=== PATIENT | male | born 1945 | race Caucasian/White ===

== ENCOUNTER → 2016-11-07 | Outpatient (CLI) | payer MEDICARE, OTHER ==
[~2016-11-07] MED LIST: CELEBREX50 MG; NEXIUM 40MG40 MG PO; PERCOCET 325 MG1 TA2 PO; VALIUM 5MG T5 MG/TAB PO; ZOCOR20 MG PO; ZYRTEC 10MG10 MG PO
== END ==
LOC: COL.RAD 10:13
DX: Z13.6 Encounter for screening for cardiovascular disorders (principal); I71.4 Abdominal aortic aneurysm, without rupture; Z87.891 Personal history of nicotine dependence

== ENCOUNTER → 2016-11-25 | Outpatient (CLI) | payer MEDICARE, OTHER | LOC: COL.RAD 10:56 | DX: M47.816 Spondylosis without myelopathy or radiculopathy, lumbar region (principal); M46.87 Other specified inflammatory spondylopathies, lumbosacral region; M89.38 Hypertrophy of bone, other site; M51.36 Other intervertebral disc degeneration, lumbar region ==

== ENCOUNTER → 2016-12-23 | Outpatient (CLI) | payer MEDICARE, OTHER | LOC: MHCPAIN 08:57 | DX: G89.29 Other chronic pain (principal); M47.817 Spondylosis without myelopathy or radiculopathy, lumbosacral region; M53.3 Sacrococcygeal disorders, not elsewhere classified; Z87.891 Personal history of nicotine dependence | CPT/HCPCS: G0463 ==

== ENCOUNTER → 2016-12-26 | Outpatient (CLI) | payer MEDICARE, OTHER | LOC: COL.RAD 12:31 | DX: R91.8 Other nonspecific abnormal finding of lung field (principal); J43.9 Emphysema, unspecified ==

== ENCOUNTER → 2017-01-09 | Outpatient (CLI) | payer MEDICARE, OTHER | LOC: MHCPAIN 09:10 | DX: M47.817 Spondylosis without myelopathy or radiculopathy, lumbosacral region (principal) ==

== ENCOUNTER → 2017-01-17 | Outpatient (CLI) | payer MEDICARE, OTHER | LOC: MHCPAIN 09:36 | DX: G89.29 Other chronic pain (principal); M47.817 Spondylosis without myelopathy or radiculopathy, lumbosacral region; M53.3 Sacrococcygeal disorders, not elsewhere classified; Z87.891 Personal history of nicotine dependence | CPT/HCPCS: G0463 ==

== ENCOUNTER → 2017-01-20 | Outpatient (CLI) | payer MEDICARE, OTHER | LOC: COL.RAD 07:45 | DX: K76.0 Fatty (change of) liver, not elsewhere classified (principal) ==

== ENCOUNTER → 2017-02-20 | Outpatient (CLI) | payer MEDICARE, OTHER | LOC: MHCPAIN 08:37 | DX: M47.817 Spondylosis without myelopathy or radiculopathy, lumbosacral region (principal) ==

== ENCOUNTER → 2017-02-28 | Outpatient (CLI) | payer MEDICARE, OTHER | LOC: MHCPAIN 09:27 | DX: G89.29 Other chronic pain (principal); M47.817 Spondylosis without myelopathy or radiculopathy, lumbosacral region; M53.3 Sacrococcygeal disorders, not elsewhere classified; Z87.891 Personal history of nicotine dependence | CPT/HCPCS: G0463 ==

== ENCOUNTER → 2017-03-18 | Outpatient (CLI) | payer MEDICARE, OTHER | LOC: COL.PUL 09:45 | DX: R06.02 Shortness of breath (principal); Z87.891 Personal history of nicotine dependence | CPT/HCPCS: J7674 ==

== ENCOUNTER → 2017-03-27 | Outpatient (CLI) | payer MEDICARE, OTHER ==
[~2017-03-27] MED LIST changes: +NORCO 325 MG-51 TAB PO; +PROTONIX 40MG T40 MG PO
== END ==
LOC: MHCPAIN 08:58
DX: M47.817 Spondylosis without myelopathy or radiculopathy, lumbosacral region (principal)
CPT/HCPCS: J1100; J2405; J3010

== ENCOUNTER 2017-03-30 02:03 | Emergency (ER) | payer MEDICARE, OTHER ==
[~2017-03-30] VITALS: Ht 185.4 cm; Wt 101.4 kg
[~2017-03-30 02:03] MED LIST changes: -NORCO 325 MG-51 TAB PO; -PROTONIX 40MG T40 MG PO
[2017-03-30 02:07] VITALS: BP 141/77; TEMP 97.9
[2017-03-30] MEDS ORDERED: PROTONIX 40MG T40 MG PO (02:12)
[2017-03-30] MEDS ORDERED: NORCO 325 MG-51 TAB PO (02:13)
[2017-03-30 04:09] VITALS: PULSE 88
== END 2017-03-30 04:09 | disposition home or self-care (01) ==
LOC: COL.ER 02:03
DX: G89.18 Other acute postprocedural pain (principal); M25.571 Pain in right ankle and joints of right foot; E78.00 Pure hypercholesterolemia, unspecified; X50.0XXA Overexertion from strenuous movement or load, initial encounter; Y92.009 Unspecified place in unspecified non-institutional (private) residence as the place of occurrence of the external cause

== ENCOUNTER → 2017-04-09 | Outpatient (CLI) | payer MEDICARE, OTHER ==
[~2017-04-09] MED LIST changes: +NORCO 325 MG-51 TAB PO; +PROTONIX 40MG T40 MG PO
== END ==
LOC: COL.RAD 08:23
DX: K21.9 Gastro-esophageal reflux disease without esophagitis (principal); K44.9 Diaphragmatic hernia without obstruction or gangrene

== ENCOUNTER → 2017-04-23 | Outpatient (CLI) | payer MEDICARE, OTHER | LOC: MHCPAIN 08:11 | DX: G89.29 Other chronic pain (principal); M47.817 Spondylosis without myelopathy or radiculopathy, lumbosacral region; M53.3 Sacrococcygeal disorders, not elsewhere classified; Z87.891 Personal history of nicotine dependence | CPT/HCPCS: G0463 ==

== ENCOUNTER → 2017-06-11 | Outpatient (CLI) | payer MEDICARE, OTHER | LOC: COL.VAS 13:26 | DX: R60.0 Localized edema (principal) ==

== ENCOUNTER 2017-06-15 22:35 | Emergency (ER) | payer MEDICARE, OTHER ==
[~2017-06-15] VITALS: Ht 185.4 cm; Wt 100.0 kg
[2017-06-15 22:52] VITALS: TEMP 96.9
[2017-06-15] MEDS ORDERED: PROAIR HFA0.09 MG/AC IH (22:58)
[2017-06-15] MEDS ORDERED: FLEXERIL 1010 MG/TAB PO (23:42)
[2017-06-15] MEDS ORDERED: NORCO 325 MG-51 TAB PO (23:42)
[2017-06-15 23:57] VITALS: BP 139/89; PULSE 62
== END 2017-06-15 23:55 | disposition home or self-care (01) ==
LOC: COL.ER 22:35
DX: M54.16 Radiculopathy, lumbar region (principal)
CPT/HCPCS: J2270; J2360

== ENCOUNTER 2017-08-18 13:53 | Emergency (ER) | payer MEDICARE, OTHER ==
[~2017-08-18] VITALS: Ht 185.4 cm; Wt 104.5 kg
[~2017-08-18 13:53] MED LIST changes: +FLEXERIL 1010 MG/TAB PO; +PROAIR HFA0.09 MG/AC IH
[2017-08-18 13:54] VITALS: TEMP 96.8
[2017-08-18 14:27] LABS: BASO % 0.4 % (0.0-2.0); EOS # 0.2 (0.0-0.7); EOS % 2.3 % (0-4.0); GRAN # 4.6 (1.4-6.5); GRAN % 65.8 % (42.2-75.2); HEMOGLOBIN 14.5 g/dl (13.5-18.0); LYMPH # 1.4 (1.2-3.4); LYMPH % 19.8 % (20.0-51.0); MEAN CELL VOLUME 87 fl (80.0-100.0); MEAN CORPUSCULAR HEMOGLOBIN 29 pg (27.0-31.0); MEAN CORPUSCULAR HGB CONC 33 g/dl (33.0-37.0); MEAN PLATELET VOLUME 9.4 fl (7.4-10.4); MONO # 0.8 (0.1-0.6); PLATELET COUNT 276 K/mm3 (130-400); RED BLOOD COUNT 5.07 M/mm3 (4.20-5.60); REDCELL DISTRIBUTION WIDTH-CV 14.5 % (11.5-14.5)
[2017-08-18 14:46] LABS: ALANINE AMINOTRANSFERASE 77 U/L (21-72); ALBUMIN 4.1 gm/dL (3.5-5.0); ALKALINE PHOSPHATASE 78 U/L (50-136); ANION GAP 9 mmol/L (7-16); AST,SGOT 77 U/L (15-37); BILIRUBIN,TOTAL 0.4 mg/dL (0.0-1.0); BLOOD UREA NITROGEN 17 mg/dL (9-20); CARBON DIOXIDE 24 mmol/L (22-30); CHLORIDE 107 mmol/L (98-107); CREATININE, serum 0.96 mg/dL (0.66-1.25); GLUCOSE 69 mg/dL (74-106); POTASSIUM 3.7 mmol/L (3.4-5.0); SODIUM 140 mmol/L (137-145); TOTAL PROTEIN 7.5 gm/dL (6.4-8.2)
[2017-08-18 14:47] LABS: C-REACTIVE PROTEIN < 0.5 mg/dL (0.0-0.9)
[2017-08-18 14:55] LABS: TROPONIN-I < 0.012 ng/mL (0.000-0.034)
[2017-08-18 16:30] LABS: COLLECTION METHOD CLEAN CATCH
[2017-08-18 16:40] LABS: MUCOUS Present /lpf; PH 5 (5-8); SQUAMOUS EPITHELIAL None Seen /hpf; URINE APPEARANCE Clear; URINE BACTERIA Rare /hpf; URINE BILIRUBIN Negative (NEGATIVE); URINE BLOOD Negative (NEGATIVE); URINE COLOR Yellow; URINE GLUCOSE 1+ (NEGATIVE); URINE KETONE Negative (NEGATIVE); URINE LEUKOCYTE ESTERASE Negative (NEGATIVE); URINE NITRATE Negative (NEGATIVE); URINE PROTEIN(semi-quant) Negative (NEGATIVE); URINE RBC 0-2 /hpf; URINE UROBILINOGEN Negative (NEGATIVE)
[2017-08-18 17:17] VITALS: BP 146/89; PULSE 66
== END 2017-08-18 17:17 | disposition home or self-care (01) ==
LOC: COL.ER 13:53
PROVIDERS: Physician Assistant
DX: R53.81 Other malaise (principal); K21.9 Gastro-esophageal reflux disease without esophagitis; E78.5 Hyperlipidemia, unspecified; Z98.890 Other specified postprocedural states
CPT/HCPCS: J2405; J7030

== ENCOUNTER → 2017-08-19 | Outpatient (CLI) | payer MEDICARE, OTHER | LOC: MHCPAIN 08:54 | DX: G89.29 Other chronic pain (principal); M47.817 Spondylosis without myelopathy or radiculopathy, lumbosacral region; M53.3 Sacrococcygeal disorders, not elsewhere classified | CPT/HCPCS: G0463 ==

== ENCOUNTER → 2017-09-01 | Outpatient (CLI) | payer MEDICARE, OTHER | LOC: COL.RAD 12:41 | DX: M47.892 Other spondylosis, cervical region (principal); M48.02 Spinal stenosis, cervical region ==

== ENCOUNTER → 2017-09-15 | Outpatient (CLI) | payer MEDICARE, OTHER | LOC: MHCPAIN 08:47 | DX: G89.29 Other chronic pain (principal); M47.817 Spondylosis without myelopathy or radiculopathy, lumbosacral region; M53.3 Sacrococcygeal disorders, not elsewhere classified | CPT/HCPCS: G0463 ==

== ENCOUNTER → 2017-09-22 | Outpatient (CLI) | payer MEDICARE, OTHER | LOC: MHCPAIN 12:25 | DX: M53.3 Sacrococcygeal disorders, not elsewhere classified (principal) | CPT/HCPCS: G0260; J1040; Q9967 ==

== ENCOUNTER → 2017-10-14 | Outpatient (CLI) | payer MEDICARE, OTHER | LOC: MHCPAIN 12:29 | DX: G89.29 Other chronic pain (principal); M47.817 Spondylosis without myelopathy or radiculopathy, lumbosacral region; M53.3 Sacrococcygeal disorders, not elsewhere classified | CPT/HCPCS: G0463 ==

== ENCOUNTER → 2017-10-28 | Outpatient (CLI) | payer MEDICARE, OTHER | LOC: MHCPAIN 09:19 | DX: G89.29 Other chronic pain (principal); M47.817 Spondylosis without myelopathy or radiculopathy, lumbosacral region; M53.3 Sacrococcygeal disorders, not elsewhere classified | CPT/HCPCS: G0463 ==

== ENCOUNTER → 2017-10-30 | Outpatient (CLI) | payer MEDICARE, OTHER | LOC: MHCPAIN 13:56 | DX: M47.817 Spondylosis without myelopathy or radiculopathy, lumbosacral region (principal); M54.16 Radiculopathy, lumbar region | CPT/HCPCS: J1100; J2250; J2405; J3010 ==

== ENCOUNTER → 2017-11-21 | Outpatient (CLI) | payer MEDICARE, OTHER | LOC: COL.VAS 08:50 | DX: M79.605 Pain in left leg (principal); M79.604 Pain in right leg ==

== ENCOUNTER → 2017-12-30 | Outpatient (CLI) | payer MEDICARE, OTHER | LOC: MHCPAIN 12:23 | DX: G89.29 Other chronic pain (principal); M47.817 Spondylosis without myelopathy or radiculopathy, lumbosacral region; M53.3 Sacrococcygeal disorders, not elsewhere classified | CPT/HCPCS: G0463 ==

== ENCOUNTER → 2018-01-08 | Outpatient (CLI) | payer MEDICARE, OTHER | LOC: MHCPAIN 13:19 | DX: M53.3 Sacrococcygeal disorders, not elsewhere classified (principal) | CPT/HCPCS: G0260; J1040; Q9967 ==

== ENCOUNTER → 2018-02-24 | Outpatient (CLI) | payer MEDICARE, OTHER | LOC: COL.RAD 11:06 | DX: J43.9 Emphysema, unspecified (principal); R06.6 Hiccough; R91.8 Other nonspecific abnormal finding of lung field | CPT/HCPCS: Q9967 ==

== ENCOUNTER → 2018-02-27 | Outpatient (CLI) | payer MEDICARE, OTHER | LOC: COL.PUL 09:49 | DX: R06.02 Shortness of breath (principal); Z87.891 Personal history of nicotine dependence | CPT/HCPCS: J7674 ==

== ENCOUNTER 2018-03-03 08:50 | Day surgery (SDC) | payer MEDICARE, OTHER ==
[~2018-03-03] VITALS: Ht 185.4 cm; Wt 104.3 kg
[2018-03-03 09:23] VITALS: BP 136/86; PULSE 78; TEMP 98.1
[2018-03-03] MEDS ORDERED: PROVENTIL0.09 MG/A1 IH (09:30)
[2018-03-03] MEDS ORDERED: CENTRUM SILVER1 TAB PO (09:32)
[2018-03-03] MEDS ORDERED: RT SPIRIVA18 MCG INH (09:33)
--- NOTE | 2018-03-03 09:34 | NUR ---
TO RM AT 0855- CALL LIGHT IN REACH AND FRIENDS AT BEDSIDE.
[2018-03-03 10:48] VITALS: BP 116/78; PULSE 70; TEMP 97.6
--- NOTE | 2018-03-03 10:48 | NUR ---
Patient arrives to [facility] via cart, accompanied by Endo RN Tricia. Bedside report received. Patient is alert and oriented. He ambulates with standby assist to chair in room. Monitoring applied - VSS and WNL on room air. Gag reflex is intact. Denies any pain or nausea. Offered and receives juice and jello to eat. Family at the bedside. Call light in reach. Will continue to monitor.
[2018-03-03 11:03] VITALS: BP 135/86; PULSE 69
--- NOTE | 2018-03-03 11:03 | NUR ---
Patient tolerated PO well. Denies any pain, nausea, or need. VSS and WNL on room air.
[2018-03-03 11:18] VITALS: BP 132/79; PULSE 63
--- NOTE | 2018-03-03 11:18 | NUR ---
VSS and WNL on room air. Denies any pain or nausea.
--- NOTE | 2018-03-03 11:20 | NUR ---
Discharge instructions discussed, denies any questions, and verbalizes understanding. PIV removed with catheter intact and hemostasis achieved. Patient changing to clothing independently. Will wait for Dr. Castelan to see patient prior to discharge.
--- NOTE | 2018-03-03 11:29 | NUR ---
Dr. Castelan at the bedside.
--- NOTE | 2018-03-03 11:35 | NUR ---
Dr. Castelan prescribing Baclofen for patient to supervisor hand silvering at preferred pharmacy ([facility]). Patient notified and aware.
--- NOTE | 2018-03-03 11:40 | NUR ---
Patient escorted to exit via wheelchair. Discharged to home with ride in private vehicle at 1140.
== END 2018-03-03 11:40 | disposition home or self-care (01) ==
LOC: SDCO 08:50
DX: K29.30 Chronic superficial gastritis without bleeding (principal); Z87.19 Personal history of other diseases of the digestive system; Z98.890 Other specified postprocedural states; Z79.899 Other long term (current) drug therapy; E78.00 Pure hypercholesterolemia, unspecified
CPT/HCPCS: OP; J2250; J3010; J7030

== ENCOUNTER → 2018-04-21 | Outpatient (CLI) | payer MEDICARE, OTHER ==
[~2018-04-21] MED LIST changes: +CENTRUM SILVER1 TAB PO; +PROVENTIL0.09 MG/A1 IH; +RT SPIRIVA18 MCG INH
== END ==
LOC: MHCPAIN 07:44
DX: G89.29 Other chronic pain (principal); M47.817 Spondylosis without myelopathy or radiculopathy, lumbosacral region; M53.3 Sacrococcygeal disorders, not elsewhere classified
CPT/HCPCS: G0463

== ENCOUNTER 2018-05-29 13:46 | Emergency (ER) | payer MEDICARE, OTHER ==
[~2018-05-29] VITALS: Ht 185.4 cm; Wt 100.0 kg
[2018-05-29 13:56] VITALS: BP 122/77; PULSE 80; TEMP 99.5
[2018-05-29] MEDS ORDERED: NORCO 325 MG-51 TAB PO (17:22)
[2018-05-29] MEDS ORDERED: FLEXERIL 1010 MG/TAB PO (17:22)
[2018-05-29] MEDS ORDERED: LIDODERM 5% PATC1 EA TP (17:22)
== END 2018-05-29 17:56 | disposition home or self-care (01) ==
LOC: COL.ER 13:46
DX: M54.5 Low back pain (principal); G89.29 Other chronic pain

== ENCOUNTER → 2018-06-05 | Outpatient (CLI) | payer MEDICARE, OTHER ==
[~2018-06-05] MED LIST changes: +LIDODERM 5% PATC1 EA TP
== END ==
LOC: COL.VAS 12:57
DX: R06.02 Shortness of breath (principal)

== ENCOUNTER 2018-06-24 12:45 | Emergency (ER) | payer MEDICARE, OTHER ==
[~2018-06-24] VITALS: Ht 185.4 cm; Wt 97.7 kg
[2018-06-24 12:53] VITALS: TEMP 97
[2018-06-24] MEDS ORDERED: PROTONIX 40MG T40 MG PO (13:05)
[2018-06-24] MEDS ORDERED: LASIX 40MG TABL40 MG PO (13:05)
[2018-06-24] MEDS ORDERED: SPIRIVA RE2.5 MCG/Ac IH (13:06)
[2018-06-24] MEDS ORDERED: FLOMAX 0.40.4 MG/CAP PO (13:06)
[2018-06-24] MEDS ORDERED: ZOCOR 20MG20 MG PO (13:06)
[2018-06-24 13:22] LABS: BASO % 0.4 % (0.0-2.0); EOS # 0.1 (0.0-0.7); EOS % 0.9 % (0-4.0); GRAN # 8.5 (1.4-6.5); GRAN % 84.1 % (42.2-75.2); HEMATOCRIT 47.3 % (42.0-52.0); HEMOGLOBIN 15.8 g/dl (13.5-18.0); LYMPH # 0.7 (1.2-3.4); LYMPH % 6.9 % (20.0-51.0); MEAN CELL VOLUME 87 fl (80.0-100.0); MEAN CORPUSCULAR HEMOGLOBIN 29 pg (27.0-31.0); MEAN CORPUSCULAR HGB CONC 33 g/dl (33.0-37.0); MEAN PLATELET VOLUME 9.9 fl (7.4-10.4); MONO # 0.7 (0.1-0.6); MONO % 7.2 % (1.7-9.3); PLATELET COUNT 313 K/mm3 (130-400); RED BLOOD COUNT 5.41 M/mm3 (4.20-5.60)
[2018-06-24 13:23] LABS: INR 1.1 (0.8-3.0); PROTHROMBIN TIME 12.6 SECONDS (9.7-12.8)
[2018-06-24 13:25] LABS: PARTIAL THROMBOPLASTIN TIME 32.5 SECONDS (26.0-37.0)
[2018-06-24 13:27] LABS: ALANINE AMINOTRANSFERASE 28 U/L (21-72); ALBUMIN 4.2 gm/dL (3.5-5.0); ALKALINE PHOSPHATASE 87 U/L (50-136); ANION GAP 14 mmol/L (7-16); AST,SGOT 36 U/L (15-37); BILIRUBIN,TOTAL 0.6 mg/dL (0.0-1.0); BLOOD UREA NITROGEN 33 mg/dL (9-20); CALCIUM 9.4 mg/dL (8.4-10.2); CARBON DIOXIDE 19 mmol/L (22-30); CHLORIDE 108 mmol/L (98-107); CREATININE, serum 1.54 (0.66-1.25); GLUCOSE 163 mg/dL (74-106); POTASSIUM 3.9 mmol/L (3.4-5.0); SODIUM 142 mmol/L (137-145)
[2018-06-24 13:39] LABS: TROPONIN-I < 0.012 ng/mL (0.000-0.035)
[2018-06-24] MEDS ORDERED: ANTIVERT 25MG25 MG PO (17:52)
[2018-06-24 18:06] VITALS: BP 148/93; PULSE 85
== END 2018-06-24 18:09 | disposition home or self-care (01) ==
LOC: COL.ER 12:45
PROVIDERS: Family Medicine
DX: I95.9 Hypotension, unspecified (principal); J44.9 Chronic obstructive pulmonary disease, unspecified
CPT/HCPCS: J7030

== ENCOUNTER 2018-07-11 15:55 | Emergency (ER) | payer MEDICARE, OTHER ==
[~2018-07-11] VITALS: Ht 182.9 cm; Wt 95.5 kg
[~2018-07-11 15:55] MED LIST changes: +ANTIVERT 25MG25 MG PO; +FLOMAX 0.40.4 MG/CAP PO; +LASIX 40MG TABL40 MG PO; +SPIRIVA RE2.5 MCG/Ac IH; +ZOCOR 20MG20 MG PO
[2018-07-11 15:56] VITALS: TEMP 98.2
[2018-07-11 16:26] LABS: BASO % 0.4 % (0.0-2.0); EOS # 0.2 (0.0-0.7); EOS % 2.1 % (0-4.0); GRAN # 6.6 (1.4-6.5); GRAN % 71.6 % (42.2-75.2); HEMATOCRIT 45.8 % (42.0-52.0); HEMOGLOBIN 15.2 g/dl (13.5-18.0); LYMPH # 1.3 (1.2-3.4); LYMPH % 14.1 % (20.0-51.0); MEAN CELL VOLUME 88 fl (80.0-100.0); MEAN CORPUSCULAR HEMOGLOBIN 29 pg (27.0-31.0); MEAN CORPUSCULAR HGB CONC 33 g/dl (33.0-37.0); MEAN PLATELET VOLUME 9.9 fl (7.4-10.4); MONO % 11.1 % (1.7-9.3); PLATELET COUNT 292 K/mm3 (130-400); RED BLOOD COUNT 5.23 M/mm3 (4.20-5.60); REDCELL DISTRIBUTION WIDTH-CV 13.8 % (11.5-14.5)
[2018-07-11 16:39] LABS: BILIRUBIN,TOTAL 0.4 mg/dL (0.0-1.0); CALCIUM 8.8 mg/dL (8.4-10.2); CREATININE, serum 1.24 (0.66-1.25); POTASSIUM 3.6 mmol/L (3.4-5.0); TOTAL PROTEIN 7.6 gm/dL (6.4-8.2)
[2018-07-11] MEDS ORDERED: FLEXERIL 1010 MG/TAB PO (17:06)
[2018-07-11] MEDS ORDERED: NORCO 325 MG-51 TAB PO (17:06)
[2018-07-11 17:24] VITALS: BP 138/82; PULSE 75
== END 2018-07-11 17:25 | disposition home or self-care (01) ==
LOC: COL.ER 15:55
PROVIDERS: Family Medicine
DX: S39.012A Strain of muscle, fascia and tendon of lower back, initial encounter (principal); J44.9 Chronic obstructive pulmonary disease, unspecified
CPT/HCPCS: J3010

== ENCOUNTER → 2018-08-04 | Outpatient (CLI) | payer MEDICARE, OTHER | LOC: MHCPAIN 08:58 | DX: G89.29 Other chronic pain (principal); M47.817 Spondylosis without myelopathy or radiculopathy, lumbosacral region; M53.3 Sacrococcygeal disorders, not elsewhere classified | CPT/HCPCS: G0463 ==

== ENCOUNTER → 2018-09-07 | Outpatient (CLI) | payer MEDICARE, OTHER | LOC: MHCPAIN 09:31 | DX: G89.29 Other chronic pain (principal); M47.817 Spondylosis without myelopathy or radiculopathy, lumbosacral region; M53.3 Sacrococcygeal disorders, not elsewhere classified | CPT/HCPCS: G0463 ==

== ENCOUNTER 2018-10-08 15:32 | Inpatient (IN) | payer MEDICARE, OTHER ==
[~2018-10-08] VITALS: Ht 185.4 cm; Wt 99.3 kg
[~2018-10-08 15:32] MED LIST changes: +PROTONIX20 MG PO
[2018-10-13] MEDS ORDERED: REMERON 15M15 MG/TA1 PO (03:11)
[2018-10-13] MEDS ORDERED: LIORESAL 1010 MG/TAB PO (03:15)
[2018-10-13] MEDS ORDERED: VITAMIN D31000 I1 PO (03:18)
[2018-10-13] MEDS ORDERED: TYLENOL 500MG500 MG PO (03:21)
[2018-10-13] MEDS ORDERED: MOTRIN 200200 MG/TAB PO (03:22)
[2018-10-13] MEDS ORDERED: PROAIR HFA0.09 MG/AC IH (03:23)
[2018-10-13] MEDS ORDERED: ANORO IH (03:24)
[2018-10-14] MEDS ORDERED: AMOXICILLIN 8751 TAB PO (09:58)
[2018-10-14] MEDS ORDERED: PERCOCET 325 MG1 TA2 PO (09:58)
[2018-10-19] MEDS ORDERED: FLOMAX 0.40.4 MG/CAP PO (12:43)
[2018-12-07] MEDS ORDERED: NORCO 325 MG-51 TAB PO (22:17)
[2018-12-07] MEDS ORDERED: FLEXERIL 1010 MG/TAB PO (22:17)
[2019-01-13] VITALS (11 sets, daily range): BP systolic 108–153; BP diastolic 65–87; PULSE 72–84; TEMP 97.9–98.2
--- NOTE | 2019-01-13 10:32 | NUR ---
Initial visit; Patient and family thanked Aircraft Assembler for looking in on him and offering God's blessings and prayer.
--- NOTE | 2019-01-13 15:46 | NUR ---
PT TO ROOM 330 PER BED WITH REPORT FROM LUIS RODAS PACU @ 3526.PT IS DROWSEY BUT AROUSES TO VERBAL, LUNGS CLEAR, BOWEL SOUNDS PRESENT. PEDAL PULSES PALPABLE, DRESSING TO LDEFT HIP CDI WITH OCCLUSIVE FOAM TAPE OVER INCISION. TEDS BILATERALLY AND SCDS.LA CATHETER TO DD WITH CLEAR YELLOW URINE IN BAG.
--- NOTE | 2019-01-13 17:00 | NUR ---
Fitting Room Maintenance Mechanic met with patient and patient's , Pat (ph#[phone]) to discuss discharge planning. Patient lives in [place] with his and sees Dr. Elisha Alvarado for primary care. Patient obtains medications from [facility]. Patient has walker, cane, and seat riser at home. Patient states he has Advance Directives completed. Patient plans to return home upon discharge.
[2019-01-14] VITALS: BP 124/7; BP 124/75; PULSE 92; TEMP 98.1
--- NOTE | 2019-01-14 03:14 | NUR ---
Patient has rested well throughout the night. Bulky dressing to left hip clean, dry, and intact. Pulses present to extremities. Patient ambulated to just outside his door with walker and 2 assist from staff. Steady gait noted. Zhong present, draining clear, yellow urine. PRN pain medication given per orders. Pain well controlled this shift. Patient denies any further needs. Will continue to monitor.
[2019-01-14 04:00] VITALS: BP 122/67; PULSE 82; TEMP 98.2
--- NOTE | 2019-01-14 06:40 | NUR ---
awake resting in bed, bedside shift report received from CLARK Nathan
[2019-01-14 06:45] LABS: HEMATOCRIT 37.6 % (42.0-52.0); HEMOGLOBIN 12.4 g/dl (13.5-18.0)
[2019-01-14] MEDS ORDERED: MIRALAX PA17 GM/Dose PO (06:59)
[2019-01-14 07:07] VITALS: BP 117/65; BP 130/84; PULSE 103; PULSE 85; TEMP 97.8; TEMP 998.3
--- NOTE | 2019-01-14 09:10 | NUR ---
in bed and appears to be dozing, family at bedside
--- NOTE | 2019-01-14 10:19 | NUR ---
Pt resting in bed with eyes closed. No sign of distress. VSS. Family at bedside. Call light within reach.
--- NOTE | 2019-01-14 10:30 | NUR ---
assisted him with standing up for a minute per his request, then student nurse in and rinaldi catheter discontinued
--- NOTE | 2019-01-14 11:20 | NUR ---
stood at bedside and was ble to use urinal and voided qs,
--- NOTE | 2019-01-14 11:40 | NUR ---
is gone and chair alarm is now on
[2019-01-14 12:16] VITALS: BP 111/57; PULSE 92; TEMP 98.4
--- NOTE | 2019-01-14 13:26 | NUR ---
ambulated out to [facility] with physical therapy for group exercises
--- NOTE | 2019-01-14 14:17 | NUR ---
back to room after therapy and resting in bed
--- NOTE | 2019-01-14 14:40 | NUR ---
in bed and appears to be sleeping, lights off, eyes closed, resp quiet and easy
[2019-01-14 16:07] VITALS: BP 116/61; PULSE 83; TEMP 98.4
--- NOTE | 2019-01-14 16:29 | NUR ---
up in recliner and appears to be sleeping, eyes closed, resp quiet and easy, at bedside
--- NOTE | 2019-01-14 18:18 | NUR ---
has returned to bed, had supper but only small amount as he didn't like what he had, denies needs
--- NOTE | 2019-01-14 18:51 | NUR ---
bedside shift report given to CLARK Nathan
[2019-01-14 21:34] VITALS: BP 116/54; PULSE 90; TEMP 98.4
[2019-01-15 00:07] VITALS: BP 106/57; PULSE 88; TEMP 98.6
[2019-01-15 05:32] VITALS: BP 143/73; PULSE 99; TEMP 97.9
--- NOTE | 2019-01-15 05:51 | NUR ---
Patient has rested well throughout the night. Pain well controlled with current regimen. Noted to be incontinent several times throughout the night. Wears protective briefs. Denies any other needs. Dressing to left hip clean, dry, and intact. Will report off to day shift nurse.
[2019-01-15 06:09] LABS: HEMATOCRIT 38.4 % (42.0-52.0); HEMOGLOBIN 12.8 g/dl (13.5-18.0)
[2019-01-15] MEDS ORDERED: ASPI325T6 PO (06:39)
[2019-01-15] MEDS ORDERED: CELEBREX 200MG200 MG PO (06:39)
[2019-01-15] MEDS ORDERED: NORCO 325 MG-51 TAB PO (06:40)
--- NOTE | 2019-01-15 07:39 | NUR ---
REPORT FROM ZULEYMA RODAS.
[2019-01-15 07:52] VITALS: BP 108/58; PULSE 94; TEMP 98.4
--- NOTE | 2019-01-15 08:02 | NUR ---
Pt resting in bed with eyes closed. VSS. Transferred pt x2 assist from bed to chair. Chair alarm in place. Call light within.
[2019-01-15 11:50] VITALS: BP 113/67; PULSE 90; TEMP 97.3
--- NOTE | 2019-01-15 16:02 | NUR ---
DISCHARGE INSTRUCTIONS REVIEWED WITH PATIENT AND . QUESTIONS SOLICITED AND ANSWERED. PT TAKEN BY WHEEL CHAIR TO FRONT.
== END 2019-01-15 14:30 | disposition home or self-care (01) | DRG 470 ==
LOC: JCC 12-28 07:30
PROVIDERS: ADMIT Orthopaedic Surgery
PROC: 0SRB04Z Replacement of Left Hip Joint with Ceramic on Polyethylene Synthetic Substitute, Open Approach (ICD-10-PCS; principal; 2019-01-13 11:25)
DX: M16.12 Unilateral primary osteoarthritis, left hip (principal)
CPT/HCPCS: A4216; A4314; A9284; C1713; C1776; J0690; J1100; J2250; J2405; J2704; J3010; J7030; J7120

== ENCOUNTER → 2018-10-16 | Outpatient (CLI) | payer MEDICARE, OTHER ==
[~2018-10-16] MED LIST changes: +AMOXICILLIN 8751 TAB PO; +ANORO IH; +LIORESAL 1010 MG/TAB PO; +MOTRIN 200200 MG/TAB PO; +REMERON 15M15 MG/TA1 PO; +TYLENOL 500MG500 MG PO; +VITAMIN D31000 I1 PO
[2018-10-16 07:44] LABS: HEMATOCRIT 41.9 % (42.0-52.0); HEMOGLOBIN 13.6 g/dl (13.5-18.0); MEAN CELL VOLUME 90 fl (80.0-100.0); MEAN CORPUSCULAR HEMOGLOBIN 29 pg (27.0-31.0); MEAN CORPUSCULAR HGB CONC 33 g/dl (33.0-37.0); MEAN PLATELET VOLUME 9.6 fl (7.4-10.4); PLATELET COUNT 250 K/mm3 (130-400); RED BLOOD COUNT 4.64 M/mm3 (4.20-5.60); REDCELL DISTRIBUTION WIDTH-CV 14.6 % (11.5-14.5)
[2018-10-16 07:56] LABS: ALBUMIN 3.8 gm/dL (3.5-5.0); BILIRUBIN,TOTAL 1.2 mg/dL (0.0-1.0); CALCIUM 9.1 mg/dL (8.4-10.2); CREATININE, serum 1.24 (0.66-1.25); POTASSIUM 3.9 mmol/L (3.4-5.0); TOTAL PROTEIN 7.2 gm/dL (6.4-8.2)
== END ==
LOC: COL.LAB 07:17
PROVIDERS: Surgery
DX: K80.50 Calculus of bile duct without cholangitis or cholecystitis without obstruction (principal)

== ENCOUNTER 2018-10-19 11:35 | Day surgery (SDC) | payer MEDICARE, OTHER ==
[~2018-10-19] VITALS: Ht 185.4 cm; Wt 102.9 kg
[2018-10-19] VITALS (7 sets, daily range): BP systolic 115–152; BP diastolic 76–107; PULSE 61–73; TEMP 97.3
[2018-10-19] MEDS ORDERED: FLOMAX 0.40.4 MG/CAP PO (12:43)
[2018-10-19 12:56] LABS: ALBUMIN 3.9 gm/dL (3.5-5.0); TOTAL PROTEIN 7.4 gm/dL (6.4-8.2)
[2018-10-19 13:10] LABS: BILIRUBIN UNCONJUGATED 0.3 mg/dL (0.0-1.1); BILIRUBIN,DIRECT 0.2 mg/dL (0.0-0.4); BILIRUBIN,TOTAL 0.5 mg/dL (0.0-1.0)
--- NOTE | 2018-10-19 14:05 | NUR ---
Per Dr. Greer, patient may discharge home at 1537 if asymptomatic and met discharge criteria.
--- NOTE | 2018-10-19 14:05 | NUR ---
Patient arrives to [facility] via cart, accompanied by endo RN Tricia. He is drowsy, but easily aroused to voice. He ambulates with standby assist to chair in room. Monitoring applied - VSS and WNL on 2L nasal cannula. He denies pain or nausea. Offered and receives juice and water to drink. His is at the bedside. Call light in reach. Will continue to monitor.
--- NOTE | 2018-10-19 14:09 | NUR ---
Dr. Greer at the bedside and talks with patient and his at this time.
--- NOTE | 2018-10-19 14:20 | NUR ---
Patient is resting comfortably in room. VSS and WNL on room air. Escorted to restroom to void. Returns to room.
--- NOTE | 2018-10-19 14:35 | NUR ---
BP is elevated - taken after returning from restroom. Will re-check after patient settles.
--- NOTE | 2018-10-19 14:50 | NUR ---
VSS and WNL on room air. Denies any pain, nausea, or need at this time. BP is back to WNL.
--- NOTE | 2018-10-19 15:05 | NUR ---
Resting comfortably in room. Denies any pain, nausea, or need.
--- NOTE | 2018-10-19 15:30 | NUR ---
VSS and WNL on room air. Denies any pain, nausea, or need.
--- NOTE | 2018-10-19 15:41 | NUR ---
Patient states "I'm ready to go home". He has met discharge criteria. Discharge instructions discussed, denies any questions, and verbalizes understanding. PIV removed with catheter intact and hemostasis achieved. Patient changes to clothing independently.
--- NOTE | 2018-10-19 15:50 | NUR ---
Patient escorted to exit via wheelchair. Discharged to home with ride in private vehicle at 1550.
== END 2018-10-19 15:50 | disposition home or self-care (01) ==
LOC: SDCO 11:35
PROVIDERS: Internal Medicine Gastroenterology
DX: K80.50 Calculus of bile duct without cholangitis or cholecystitis without obstruction (principal); Z90.49 Acquired absence of other specified parts of digestive tract
CPT/HCPCS: C1769; G0378; J1610; J2704; J3010; J7030; Q9967

== ENCOUNTER 2018-12-07 21:51 | Emergency (ER) | payer MEDICARE, OTHER ==
[~2018-12-07] VITALS: Ht 185.4 cm; Wt 95.5 kg
[2018-12-07 21:55] VITALS: BP 110/64; TEMP 97
[2018-12-07] MEDS ORDERED: NORCO 325 MG-51 TAB PO (22:17)
[2018-12-07] MEDS ORDERED: FLEXERIL 1010 MG/TAB PO (22:17)
[2018-12-07 23:01] VITALS: PULSE 63
== END 2018-12-07 23:01 | disposition home or self-care (01) ==
LOC: COL.ER 21:51
DX: M54.5 Low back pain (principal); G89.29 Other chronic pain; Z87.891 Personal history of nicotine dependence
CPT/HCPCS: J2270

== ENCOUNTER → 2019-01-04 | Outpatient (CLI) | payer MEDICARE, OTHER | LOC: COL.LAB 11:13 | DX: Z01.812 Encounter for preprocedural laboratory examination (principal); Z01.83 Encounter for blood typing; M16.12 Unilateral primary osteoarthritis, left hip ==

== ENCOUNTER → 2019-02-11 | Outpatient (CLI) | payer MEDICARE, OTHER ==
[~2019-02-11] MED LIST changes: +ASPI325T6 PO; +CELEBREX 200MG200 MG PO; +MIRALAX PA17 GM/Dose PO
[2019-02-11 13:41] LABS: BASO % 0.3 % (0.0-2.0); EOS # 0.1 (0.0-0.7); EOS % 0.6 % (0-4.0); GRAN # 7.4 (1.4-6.5); GRAN % 77.3 % (42.2-75.2); LYMPH # 1.1 (1.2-3.4); LYMPH % 11.8 % (20.0-51.0); MEAN CELL VOLUME 89 fl (80.0-100.0); MEAN CORPUSCULAR HEMOGLOBIN 29 pg (27.0-31.0); MEAN CORPUSCULAR HGB CONC 33 g/dl (33.0-37.0); MEAN PLATELET VOLUME 9.7 fl (7.4-10.4); MONO # 0.9 (0.1-0.6); MONO % 9.4 % (1.7-9.3); PLATELET COUNT 401 K/mm3 (130-400); RED BLOOD COUNT 4.51 M/mm3 (4.20-5.60); REDCELL DISTRIBUTION WIDTH-CV 14.3 % (11.5-14.5)
[2019-02-11 13:52] LABS: ALBUMIN 4.4 gm/dL (3.5-5.0); BILIRUBIN,TOTAL 0.4 mg/dL (0.0-1.0); CALCIUM 9.6 mg/dL (8.4-10.2); CREATININE, serum 1.48 (0.66-1.25); POTASSIUM 3.8 mmol/L (3.4-5.0); TOTAL PROTEIN 8.1 gm/dL (6.4-8.2)
[2019-02-11 16:38] LABS: COLLECTION METHOD CLEAN CATCH
[2019-02-11 17:24] LABS: MUCOUS Present /lpf; PH 5 (5-8); SQUAMOUS EPITHELIAL None Seen /hpf; URINE APPEARANCE Hazy; URINE BACTERIA None Seen /hpf; URINE BILIRUBIN Negative (NEGATIVE); URINE BLOOD Negative (NEGATIVE); URINE COLOR Yellow; URINE GLUCOSE Negative (NEGATIVE); URINE KETONE Negative (NEGATIVE); URINE LEUKOCYTE ESTERASE Negative (NEGATIVE); URINE NITRATE Negative (NEGATIVE); URINE PROTEIN(semi-quant) Negative (NEGATIVE); URINE RBC 0-2 /hpf; URINE UROBILINOGEN Negative (NEGATIVE); URINE WBC 0-2 /hpf
== END ==
LOC: COL.LAB 13:08
PROVIDERS: Family Medicine
DX: R11.0 Nausea (principal)

== ENCOUNTER → 2019-04-06 | Outpatient (CLI) | payer MEDICARE, OTHER | LOC: COL.RAD 06:22 | DX: R68.81 Early satiety (principal) | CPT/HCPCS: A9541 ==

== ENCOUNTER → 2019-04-19 | Outpatient (CLI) | payer MEDICARE, OTHER | LOC: COL.RAD 12:20 | DX: M51.36 Other intervertebral disc degeneration, lumbar region (principal); G31.9 Degenerative disease of nervous system, unspecified; I51.7 Cardiomegaly; I34.0 Nonrheumatic mitral (valve) insufficiency; R60.0 Localized edema ==

== ENCOUNTER → 2019-05-27 | Outpatient (CLI) | payer MEDICARE, OTHER ==
[2019-05-27 12:12] LABS: CALCIUM 9.3 mg/dL (8.4-10.2); CREATININE, serum 1.2 (0.66-1.25); POTASSIUM 4.2 mmol/L (3.4-5.0)
== END ==
LOC: COL.LAB 11:38
PROVIDERS: Internal Medicine
DX: G31.83 Neurocognitive disorder with Lewy bodies (principal)

== ENCOUNTER → 2019-05-31 | Outpatient (CLI) | payer MEDICARE, OTHER | LOC: COL.RAD 09:05 | DX: G31.9 Degenerative disease of nervous system, unspecified (principal); F02.80 Dementia in other diseases classified elsewhere, unspecified severity, without behavioral disturbance, psychotic disturbance, mood disturbance, and anxiety | CPT/HCPCS: A9585 ==

== ENCOUNTER 2019-07-03 20:37 | Emergency (ER) | payer MEDICARE, OTHER ==
[~2019-07-03] VITALS: Ht 185.4 cm; Wt 104.5 kg
[2019-07-03 20:41] VITALS: BP 132/72; TEMP 98
[2019-07-03 21:21] LABS: BASO % 0.4 % (0.0-2.0); EOS # 0.3 (0.0-0.7); EOS % 3.7 % (0-4.0); GRAN # 4.5 (1.4-6.5); GRAN % 66.8 % (42.2-75.2); HEMATOCRIT 41.1 % (42.0-52.0); HEMOGLOBIN 13.3 g/dl (13.5-18.0); LYMPH # 1.2 (1.2-3.4); LYMPH % 16.9 % (20.0-51.0); MEAN CELL VOLUME 89 fl (80.0-100.0); MEAN CORPUSCULAR HEMOGLOBIN 29 pg (27.0-31.0); MEAN CORPUSCULAR HGB CONC 32 g/dl (33.0-37.0); MEAN PLATELET VOLUME 9.7 fl (7.4-10.4); MONO # 0.8 (0.1-0.6); MONO % 11.5 % (1.7-9.3); PLATELET COUNT 266 K/mm3 (130-400); RED BLOOD COUNT 4.61 M/mm3 (4.20-5.60); REDCELL DISTRIBUTION WIDTH-CV 14.2 % (11.5-14.5)
[2019-07-03 21:30] LABS: ALBUMIN 4.1 gm/dL (3.5-5.0); BILIRUBIN,TOTAL 0.3 mg/dL (0.0-1.0); CALCIUM 9.1 mg/dL (8.4-10.2); CREATININE, serum 1.27 (0.66-1.25); POTASSIUM 3.7 mmol/L (3.4-5.0); TOTAL PROTEIN 7.5 gm/dL (6.4-8.2)
[2019-07-03 22:11] VITALS: PULSE 68
== END 2019-07-03 22:16 | disposition home or self-care (01) ==
LOC: COL.ER 20:37
PROVIDERS: Family Medicine
DX: S63.293A Dislocation of distal interphalangeal joint of left middle finger, initial encounter (principal); S30.0XXA Contusion of lower back and pelvis, initial encounter; S70.02XA Contusion of left hip, initial encounter; F03.90 Unspecified dementia, unspecified severity, without behavioral disturbance, psychotic disturbance, mood disturbance, and anxiety; R40.2410 Glasgow coma scale score 13-15, unspecified time; Z79.82 Long term (current) use of aspirin; W19.XXXA Unspecified fall, initial encounter; Y92.009 Unspecified place in unspecified non-institutional (private) residence as the place of occurrence of the external cause

== ENCOUNTER 2019-07-29 20:43 | Emergency (ER) | payer MEDICARE, OTHER ==
[~2019-07-29] VITALS: Ht 185.4 cm; Wt 104.5 kg
[2019-07-29 20:54] VITALS: TEMP 99.1
[2019-07-29 22:04] VITALS: BP 117/64; PULSE 77
== END 2019-07-29 22:15 | disposition home or self-care (01) ==
LOC: COL.ER 20:43
DX: S33.9XXA Sprain of unspecified parts of lumbar spine and pelvis, initial encounter (principal); S00.93XA Contusion of unspecified part of head, initial encounter; G20 Parkinson's disease; R40.2412 Glasgow coma scale score 13-15, at arrival to emergency department; Z79.82 Long term (current) use of aspirin; W01.198A Fall on same level from slipping, tripping and stumbling with subsequent striking against other object, initial encounter; Y92.000 Kitchen of unspecified non-institutional (private) residence as the place of occurrence of the external cause

== ENCOUNTER → 2019-08-02 | Outpatient (CLI) | payer MEDICARE, OTHER | LOC: COL.CARD 07:08 | DX: R55 Syncope and collapse (principal) ==

== ENCOUNTER 2019-11-22 12:46 | Emergency (ER) | payer MEDICARE, OTHER ==
[~2019-11-22] VITALS: Ht 185.4 cm; Wt 104.5 kg
[2019-11-22 13:02] VITALS: TEMP 97.5
[2019-11-22] MEDS ORDERED: SEROQUEL 2525 MG/TAB PO (13:08)
[2019-11-22] MEDS ORDERED: LEXAPRO 10MG10 MG PO (13:09)
[2019-11-22] MEDS ORDERED: EXELON9.5 MG/24 TD (13:09)
[2019-11-22] MEDS ORDERED: ZAROXOLYN 2.52.5 MG PO (13:09)
[2019-11-22] MEDS ORDERED: ALDACTONE 25MG25 M1 PO (13:10)
[2019-11-22 15:00] VITALS: BP 133/86; PULSE 71
== END 2019-11-22 15:00 | disposition home or self-care (01) ==
LOC: COL.ER 12:46
DX: M54.5 Low back pain (principal); M25.552 Pain in left hip; R29.6 Repeated falls; K21.9 Gastro-esophageal reflux disease without esophagitis; G20 Parkinson's disease; Z87.891 Personal history of nicotine dependence; Z90.49 Acquired absence of other specified parts of digestive tract; Z90.89 Acquired absence of other organs; Z79.82 Long term (current) use of aspirin

== ENCOUNTER → 2020-12-21 | Outpatient (CLI) | payer MEDICARE, OTHER ==
[~2020-12-21] MED LIST changes: +ALDACTONE 25MG25 M1 PO; +ASPIRIN 81M81 MG/TA2 PO; +CARAFATE 1GM1 G PO; +EXELON9.5 MG/24 TD; +LEXAPRO 10MG10 MG PO; +MELATONIN5 M1 SL; +SEROQUEL 2525 MG/TAB PO; +SINEMET 25/101 UDTAB PO; +STALEVO 100 251 TAB PO; +ULTRAM 50MG TAB50 MG PO; +ZAROXOLYN 2.52.5 MG PO
== END ==
LOC: COL.RAD 12:54
DX: R91.8 Other nonspecific abnormal finding of lung field (principal)

== ENCOUNTER 2021-01-09 12:12 | Emergency (ER) | payer MEDICARE, OTHER ==
[~2021-01-09] VITALS: Ht 185.4 cm; Wt 86.8 kg
[2021-01-09 12:58] LABS: BASO % 0.4 % (0.0-2.0); EOS # 0.1 K/mm3 (0.0-0.7); EOS % 1.3 % (0-4.0); GRAN # 5.3 K/mm3 (1.4-6.5); GRAN % 74.2 % (42.2-75.2); HEMATOCRIT 42.5 % (42.0-52.0); HEMOGLOBIN 14.4 g/dl (13.5-18.0); LYMPH # 1.1 K/mm3 (1.2-3.4); LYMPH % 15.2 % (20.0-51.0); MEAN CELL VOLUME 88 fl (80.0-100.0); MEAN CORPUSCULAR HEMOGLOBIN 30 pg (27.0-31.0); MEAN CORPUSCULAR HGB CONC 34 g/dl (33.0-37.0); MEAN PLATELET VOLUME 9.9 fl (7.4-10.4); MONO # 0.6 K/mm3 (0.1-0.6); MONO % 8.5 % (1.7-9.3); PLATELET COUNT 321 K/mm3 (130-400); RED BLOOD COUNT 4.81 M/mm3 (4.20-5.60); REDCELL DISTRIBUTION WIDTH-CV 13.8 % (11.5-14.5)
[2021-01-09 13:14] LABS: ALBUMIN 3.8 gm/dL (3.4-4.8); ALKALINE PHOSPHATASE 48 U/L (40-150); ANION GAP 11 mmol/L (7-16); AST,SGOT 20 U/L (5-34); BILIRUBIN,TOTAL 0.6 mg/dL (0.2-1.2); BLOOD UREA NITROGEN 18 mg/dL (8-26); CALCIUM 9.4 mg/dL (8.4-10.2); CARBON DIOXIDE 24 mmol/L (23-31); CHLORIDE 107 mmol/L (98-107); CREATININE, serum 0.93 mg/dL (0.72-1.25); GLUCOSE 87 mg/dL (70-99); POTASSIUM 3.3 mmol/L (3.5-4.5); SODIUM 142 mmol/L (136-145); TOTAL PROTEIN 7.2 gm/dL (6.2-8.1)
[2021-01-09 13:16] LABS: ALANINE AMINOTRANSFERASE < 6 U/L (0-55)
[2021-01-09 15:10] VITALS: BP 107/70; PULSE 71; TEMP 97.9
== END 2021-01-09 15:10 | disposition home or self-care (01) ==
LOC: COL.ER 12:12
PROVIDERS: Personal Emergency Response Attendant
DX: R41.82 Altered mental status, unspecified (principal); G20 Parkinson's disease; F02.80 Dementia in other diseases classified elsewhere, unspecified severity, without behavioral disturbance, psychotic disturbance, mood disturbance, and anxiety; K21.9 Gastro-esophageal reflux disease without esophagitis; J44.9 Chronic obstructive pulmonary disease, unspecified; Z87.891 Personal history of nicotine dependence; Z79.899 Other long term (current) drug therapy

== ENCOUNTER → 2021-03-22 | Outpatient (CLI) | payer MEDICARE, OTHER | LOC: COL.CARD 12:41 | DX: G20 Parkinson's disease (principal); F02.81 Dementia in other diseases classified elsewhere, unspecified severity, with behavioral disturbance; R40.4 Transient alteration of awareness; R63.4 Abnormal weight loss ==

== ENCOUNTER 2021-06-04 01:49 | Emergency (ER) | payer MEDICARE, OTHER ==
[~2021-06-04] VITALS: Ht 185.4 cm; Wt 85.5 kg
[2021-06-04 02:15] LABS: BASO % 0.1 % (0.0-2.0); EOS # 0.1 K/mm3 (0.0-0.7); EOS % 0.7 % (0.0-4.0); GRAN # 12.8 K/mm3 (1.4-6.5); GRAN % 84.2 % (42.2-75.2); HEMATOCRIT 44.2 % (42.0-52.0); HEMOGLOBIN 14.6 g/dl (13.5-18.0); LYMPH # 0.9 K/mm3 (1.2-3.4); LYMPH % 5.7 % (20.0-51.0); MEAN CELL VOLUME 90 fl (80.0-100.0); MEAN CORPUSCULAR HEMOGLOBIN 30 pg (27-31); MEAN CORPUSCULAR HGB CONC 33 g/dl (33.0-37.0); MEAN PLATELET VOLUME 10.4 fl (7.4-10.4); MONO # 1.3 K/mm3 (0.1-0.6); MONO % 8.8 % (1.7-9.3); PLATELET COUNT 270 K/mm3 (130-400); RED BLOOD COUNT 4.91 M/mm3 (4.20-5.60); REDCELL DISTRIBUTION WIDTH-CV 14.1 % (11.5-14.5)
[2021-06-04 02:28] LABS: ALBUMIN 3.8 gm/dL (3.4-4.8); BILIRUBIN,TOTAL 0.2 mg/dL (0.2-1.2); CALCIUM 8.8 mg/dL (8.4-10.2); CREATININE, serum 0.97 mg/dL (0.72-1.25); TOTAL PROTEIN 6.9 gm/dL (6.2-8.1)
[2021-06-04 02:35] LABS: STREP SCREEN NEGATIVE
[2021-06-04 04:02] VITALS: BP 138/69; PULSE 86; TEMP 98.2
== END 2021-06-04 04:02 | disposition home or self-care (01) ==
LOC: COL.ER 01:49
PROVIDERS: Family Medicine
DX: R13.10 Dysphagia, unspecified (principal); D72.829 Elevated white blood cell count, unspecified; Z87.891 Personal history of nicotine dependence
CPT/HCPCS: J7030; Q9967

== ENCOUNTER 2021-06-14 20:18 | Inpatient (IN) | payer MEDICARE, OTHER ==
[~2021-06-14] VITALS: Ht 185.4 cm; Wt 64.9 kg
[2021-06-14 21:13] LABS: BASO % 0.2 % (0.0-2.0); EOS % 0.1 % (0.0-4.0); GRAN # 14.7 K/mm3 (1.4-6.5); GRAN % 87.1 % (42.2-75.2); HEMATOCRIT 40.7 % (42.0-52.0); HEMOGLOBIN 13.2 g/dl (13.5-18.0); LYMPH # 0.6 K/mm3 (1.2-3.4); LYMPH % 3.7 % (20.0-51.0); MEAN CELL VOLUME 91 fl (80.0-100.0); MEAN CORPUSCULAR HEMOGLOBIN 30 pg (27-31); MEAN CORPUSCULAR HGB CONC 32 g/dl (33.0-37.0); MEAN PLATELET VOLUME 10.3 fl (7.4-10.4); MONO # 1.3 K/mm3 (0.1-0.6); MONO % 7.8 % (1.7-9.3); PLATELET COUNT 469 K/mm3 (130-400); RED BLOOD COUNT 4.46 M/mm3 (4.20-5.60)
[2021-06-14 21:19] LABS: INR 1.3 (0.8-3.0); PROTHROMBIN TIME 15.3 SECONDS (9.7-12.8)
[2021-06-14 21:22] LABS: PARTIAL THROMBOPLASTIN TIME 34.3 SECONDS (26.0-37.0)
[2021-06-14 21:27] LABS: ALBUMIN 2.9 gm/dL (3.4-4.8); BILIRUBIN,TOTAL 0.5 mg/dL (0.2-1.2); CALCIUM 8.8 mg/dL (8.4-10.2); CREATININE, serum 1.01 mg/dL (0.72-1.25); POTASSIUM 4.4 mmol/L (3.5-4.5); TOTAL PROTEIN 7.2 gm/dL (6.2-8.1)
[2021-06-14 21:32] LABS: TROPONIN-I 0.011 ng/mL (0.00-0.033)
[2021-06-14] MEDS ORDERED: EXELON9.5 MG/24 TD (22:08)
[2021-06-14] MEDS ORDERED: AMOXICILLIN 8751 TAB PO (22:09)
[2021-06-14] MEDS ORDERED: REMERON 15M15 MG/TA1 PO (22:09)
[2021-06-14] MEDS ORDERED: ZOCOR 20MG20 MG PO (22:09)
[2021-06-14] MEDS ORDERED: LEXAPRO 10MG10 MG PO (22:09)
[2021-06-14] MEDS ORDERED: SYMMETREL100 MG PO (22:10)
[2021-06-14] MEDS ORDERED: SEROQUEL 2525 MG/TAB PO (22:10)
[2021-06-14] MEDS ORDERED: K-DUR20 MEQ PO (22:10)
[2021-06-14] MEDS ORDERED: PROTONIX 40MG T40 MG PO (22:11)
[2021-06-14] MEDS ORDERED: ANORO IH (22:11)
[2021-06-14] MEDS ORDERED: SINEMET 25/101 UDTAB PO (22:11)
[2021-06-14] MEDS ORDERED: FLORINEF ACETA0.1 MG PO (22:12)
[2021-06-14] MEDS ORDERED: ZYRTEC 10MG10 MG PO (22:12)
[2021-06-14] MEDS ORDERED: PROBIOTIC BLEN1 EACH PO (22:18)
[2021-06-15 00:18] LABS: TSH w REFLEX 1.616 uIU/mL (0.350-4.940)
[2021-06-15 00:22] LABS: ANION GAP 11 mmol/L (7-16); BLOOD UREA NITROGEN 21 mg/dL (8-26); CALCIUM 8.6 mg/dL (8.4-10.2); CARBON DIOXIDE 17 mmol/L (23-31); CHLORIDE 114 mmol/L (98-107); GLUCOSE 138 mg/dL (70-99); POTASSIUM 4.4 mmol/L (3.5-4.5); SODIUM 142 mmol/L (136-145)
[2021-06-15 00:45] LABS: COLLECTION METHOD CLEAN CATCH
[2021-06-15 00:50] LABS: MUCOUS Present (NOT PRESENT); PH 5 (5-8); SQUAMOUS EPITHELIAL 0-2 /hpf (0-10); URINE APPEARANCE Clear (CLEAR/HAZY); URINE BACTERIA None Seen /hpf (NONE SEEN); URINE BILIRUBIN Negative (NEGATIVE); URINE BLOOD 2+ (NEGATIVE); URINE COLOR Yellow (YELLOW); URINE GLUCOSE Negative (NEGATIVE); URINE KETONE Trace (NEGATIVE); URINE LEUKOCYTE ESTERASE Negative (NEGATIVE); URINE NITRATE Negative (NEGATIVE); URINE PROTEIN(semi-quant) 1+ (NEGATIVE); URINE RBC >50 /hpf (0-2); URINE UROBILINOGEN >=4.0 (NEGATIVE)
[2021-06-15 01:30] VITALS: BP 106/77; PULSE 86; TEMP 98.4
[2021-06-15 02:15] VITALS: BP 109/75; PULSE 138; TEMP 98
[2021-06-15 02:43] VITALS: BP 106/70; PULSE 146; TEMP 98
--- NOTE | 2021-06-15 03:06 | NUR ---
HOSPITALIST NOTIFIED OF PT'S AFIB. HOSPITALIST AT BEDSIDE.
[2021-06-15 04:25] VITALS: BP 97/49; PULSE 117
[2021-06-15 04:29] VITALS: BP 89/62; PULSE 105
[2021-06-15 04:46] VITALS: BP 103/76; PULSE 151
--- NOTE | 2021-06-15 05:15 | NUR ---
PT ARRIVED TO THE MEDICAL FLOOR AROUND 0220HRS. PT A&O X 3, BUT HAS LEWY BODY DEMENTIA; VS WERE STABLE AT FIRST, HOWEVER PT'S HR WHEN INTO THE 140'S, MAXED OUT ON CARDIZEM DRIP (WHICH WAS STARTED AND MAXED OUT IN ED). HOSPITALIST CALLED AND CAME TO PT'S BEDSIDE TO EVALUATE THE PT. PT DENIED CHEST PAIN, SOB OR DIZZINESS. HEPARIN DRIP AND LR STARTED PER eMAR. ADMISSIONS ASSESSMENT AND MED REC COMPLETE WE COULD GET THEM. HOSPITALIST ORDERED AMIODARONE DRIP. DRIP STARTED. HOSPITALIST MAKED CALLS TO TRANSFER PT, BASED ON EVALUATION AND DIAGNOSTIC TESTS. AROUND 0430HRS HOSPITALIST CALLED ABOUT PT'S B/P OF 97/49. B/P RETAKEN PER HOSPITALIST REQUEST. NEW B/P 89/62. HOSPITALIST ORDERED CARDIZEM DRIP TITRATED DOWN TO 10MG/HR AND GIVE 500ML IVF BOLUS. PHARMACY ASSOCIATE TITRATED CARDIZEM DRIP DOWN TO 10MG/HR AND I GIVE 500ML LR BOLUS. B/P 103/79 ABOUT 15MIN LATER. [facility] IN TO TRANSPORT PT TO [facility] ICU AT 0500HRS. .
== END 2021-06-15 05:00 | disposition short-term general hospital (02) | DRG 309 ==
LOC: COL.ER 20:18 → MEDICAL 21:53
PROVIDERS: Family Medicine; Nurse Practitioner Family; ADMIT Student in an Organized Health Care Education/Training Program
DX: I48.91 Unspecified atrial fibrillation (principal); E87.2 Acidosis; R65.10 Systemic inflammatory response syndrome (SIRS) of non-infectious origin without acute organ dysfunction; K21.9 Gastro-esophageal reflux disease without esophagitis; J44.9 Chronic obstructive pulmonary disease, unspecified; G20 Parkinson's disease; F02.80 Dementia in other diseases classified elsewhere, unspecified severity, without behavioral disturbance, psychotic disturbance, mood disturbance, and anxiety; D72.829 Elevated white blood cell count, unspecified; E78.5 Hyperlipidemia, unspecified; G31.83 Neurocognitive disorder with Lewy bodies; H70.92 Unspecified mastoiditis, left ear; D64.9 Anemia, unspecified; D75.839 Thrombocytosis, unspecified; E87.8 Other disorders of electrolyte and fluid balance, not elsewhere classified; R73.9 Hyperglycemia, unspecified; I34.0 Nonrheumatic mitral (valve) insufficiency; H66.92 Otitis media, unspecified, left ear; R13.10 Dysphagia, unspecified; Z96.642 Presence of left artificial hip joint; Z87.891 Personal history of nicotine dependence; Z79.82 Long term (current) use of aspirin; Z23 Encounter for immunization
CPT/HCPCS: 99223-AI; J0282; J1644; J7030; J7060; J7120; Q9967

== ENCOUNTER 2021-06-24 19:46 | Emergency (ER) | payer MEDICARE, OTHER ==
[~2021-06-24] VITALS: Ht 177.8 cm; Wt 86.4 kg
[~2021-06-24 19:46] MED LIST changes: +FLORINEF ACETA0.1 MG PO; +K-DUR20 MEQ PO; +PROBIOTIC BLEN1 EACH PO; +SYMMETREL100 MG PO
[2021-06-24 19:47] VITALS: TEMP 97.2
[2021-06-24 20:33] LABS: BASO % 0.4 % (0.0-2.0); EOS # 0.2 K/mm3 (0.0-0.7); EOS % 3.1 % (0.0-4.0); GRAN # 4.8 K/mm3 (1.4-6.5); GRAN % 68.4 % (42.2-75.2); HEMOGLOBIN 11.6 g/dl (13.5-18.0); LYMPH # 1.1 K/mm3 (1.2-3.4); LYMPH % 16.1 % (20.0-51.0); MEAN CELL VOLUME 89 fl (80.0-100.0); MEAN CORPUSCULAR HEMOGLOBIN 29 pg (27-31); MEAN CORPUSCULAR HGB CONC 32 g/dl (33.0-37.0); MEAN PLATELET VOLUME 9.6 fl (7.4-10.4); MONO # 0.8 K/mm3 (0.1-0.6); PLATELET COUNT 544 K/mm3 (130-400); RED BLOOD COUNT 4.02 M/mm3 (4.20-5.60); REDCELL DISTRIBUTION WIDTH-CV 14.2 % (11.5-14.5)
[2021-06-24 20:36] LABS: HEMATOCRIT 35.9 % (42.0-52.0)
[2021-06-24 20:46] LABS: ALANINE AMINOTRANSFERASE 6 U/L (0-55); ALBUMIN 2.6 gm/dL (3.4-4.8); ALKALINE PHOSPHATASE 90 U/L (40-150); ANION GAP 12 mmol/L (7-16); AST,SGOT 16 U/L (5-34); BILIRUBIN,TOTAL 0.2 mg/dL (0.2-1.2); BLOOD UREA NITROGEN 13 mg/dL (8-26); CALCIUM 8.2 mg/dL (8.4-10.2); CARBON DIOXIDE 21 mmol/L (23-31); CHLORIDE 112 mmol/L (98-107); GLUCOSE 87 mg/dL (70-99); POTASSIUM 3.7 mmol/L (3.5-4.5); SODIUM 145 mmol/L (136-145); TOTAL PROTEIN 6.8 gm/dL (6.2-8.1)
[2021-06-24 20:51] LABS: INR 1.7 (0.8-3.0); PROTHROMBIN TIME 19.8 SECONDS (9.7-12.8)
[2021-06-24 20:52] LABS: TROPONIN-I < 0.010 ng/mL (0.00-0.033)
[2021-06-24] MEDS ORDERED: LEVAQUIN 5500 MG/TA1 PO (22:45)
[2021-06-24] MEDS ORDERED: MIRALAX238G PO (22:45)
[2021-06-25 00:18] VITALS: BP 152/89; PULSE 62
== END 2021-06-25 00:28 | disposition home or self-care (01) ==
LOC: COL.ER 19:46
PROVIDERS: Personal Emergency Response Attendant
DX: J18.9 Pneumonia, unspecified organism (principal); K59.00 Constipation, unspecified; Z87.891 Personal history of nicotine dependence; Z90.49 Acquired absence of other specified parts of digestive tract; Z98.890 Other specified postprocedural states
CPT/HCPCS: J1956; Q9967

== ENCOUNTER 2021-07-04 09:00 | Emergency (ER) | payer MEDICARE, OTHER ==
[~2021-07-04] VITALS: Ht 185.4 cm; Wt 85.5 kg
[~2021-07-04 09:00] MED LIST changes: +LEVAQUIN 5500 MG/TA1 PO; +MIRALAX238G PO
[2021-07-04 09:16] VITALS: TEMP 98.7
[2021-07-04] MEDS ORDERED: LIPITOR20 MG PO (09:29)
[2021-07-04] MEDS ORDERED: ELIQUIS 5MG PO (09:29)
[2021-07-04 09:30] LABS: BASO % 0.3 % (0.0-2.0); EOS # 0.1 K/mm3 (0.0-0.7); EOS % 1.1 % (0.0-4.0); GRAN # 9.1 K/mm3 (1.4-6.5); GRAN % 78.8 % (42.2-75.2); HEMATOCRIT 37.2 % (42.0-52.0); HEMOGLOBIN 12.1 g/dl (13.5-18.0); LYMPH % 8.9 % (20.0-51.0); MEAN CELL VOLUME 88 fl (80.0-100.0); MEAN CORPUSCULAR HEMOGLOBIN 29 pg (27-31); MEAN CORPUSCULAR HGB CONC 33 g/dl (33.0-37.0); MEAN PLATELET VOLUME 9.6 fl (7.4-10.4); MONO # 1.2 K/mm3 (0.1-0.6); MONO % 10.2 % (1.7-9.3); PLATELET COUNT 386 K/mm3 (130-400); RED BLOOD COUNT 4.23 M/mm3 (4.20-5.60); REDCELL DISTRIBUTION WIDTH-CV 14.1 % (11.5-14.5)
[2021-07-04] MEDS ORDERED: PRILOSEC 20MG20 MG PO (09:31)
[2021-07-04] MEDS ORDERED: PACERONE200 MG PO (09:33)
[2021-07-04 09:45] LABS: ALANINE AMINOTRANSFERASE 13 U/L (0-55); ALBUMIN 2.7 gm/dL (3.4-4.8); ALKALINE PHOSPHATASE 78 U/L (40-150); ANION GAP 11 mmol/L (7-16); AST,SGOT 11 U/L (5-34); BILIRUBIN,TOTAL 0.6 mg/dL (0.2-1.2); BLOOD UREA NITROGEN 15 mg/dL (8-26); CALCIUM 8.5 mg/dL (8.4-10.2); CARBON DIOXIDE 25 mmol/L (23-31); CHLORIDE 108 mmol/L (98-107); CREATININE, serum 0.95 mg/dL (0.72-1.25); GLUCOSE 103 mg/dL (70-99); POTASSIUM 3.4 mmol/L (3.5-4.5); SODIUM 144 mmol/L (136-145)
[2021-07-04 09:53] LABS: TROPONIN-I < 0.010 ng/mL (0.00-0.033)
[2021-07-04 11:30] VITALS: BP 146/80; PULSE 66
== END 2021-07-04 11:55 | disposition home or self-care (01) ==
LOC: COL.ER 09:00
PROVIDERS: Family Medicine
DX: R07.89 Other chest pain (principal); Z87.09 Personal history of other diseases of the respiratory system

== ENCOUNTER → 2021-07-18 | Outpatient (CLI) | payer MEDICARE, OTHER ==
[~2021-07-18] MED LIST changes: +ELIQUIS 5MG PO; +LIPITOR20 MG PO; +PACERONE200 MG PO; +PRILOSEC 20MG20 MG PO
== END ==
LOC: COL.RAD 09:24
DX: J90 Pleural effusion, not elsewhere classified (principal); K44.9 Diaphragmatic hernia without obstruction or gangrene; I31.3 Pericardial effusion (noninflammatory)
CPT/HCPCS: Q9967

== ENCOUNTER → 2021-09-19 | Outpatient (CLI) | payer MEDICARE, OTHER | LOC: COL.RAD 12:19 | DX: K86.2 Cyst of pancreas (principal) | CPT/HCPCS: Q9967 ==

== ENCOUNTER 2021-10-09 08:36 | Day surgery (SDC) | payer MEDICARE, OTHER ==
[~2021-10-09] VITALS: Ht 185.4 cm; Wt 74.3 kg
[2021-10-09] MEDS ORDERED: NAMENDA5 MG PO (09:49)
[2021-10-09 09:52] VITALS: BP 146/81; PULSE 65; TEMP 97.1
[2021-10-09 10:40] VITALS: BP 134/77; PULSE 67; TEMP 97.7
[2021-10-09 10:55] VITALS: BP 126/82; PULSE 66
[2021-10-09 11:10] VITALS: BP 140/81; PULSE 63
--- NOTE | 2021-10-09 11:23 | NUR ---
1040 - PT arrives and was settled by Lesly RODAS. Verbal report then obtained. 1055 - Vitals obtained. PT is tolerating snack and drink; denies pain and nasuea. Call peña remains within reach of his . PT assisted w/ repositioning in bed by RN. 1110 - Vitals obtained. PT provided w/ warm muffin per request; call peña remains within reach. PT and expressed desire to be discharged. has spoken w/ PT. 1125 - Vitals obtained. PT continues to tolerate snack and drink; call peña remains within reach if needed.
[2021-10-09 11:25] VITALS: BP 144/74; PULSE 67
--- NOTE | 2021-10-09 11:53 | NUR ---
1140 - DC instructions and educational material reviewed w/ PT and his , who verbalized understanding and signed the related paperwork. Questions answered to PT satisfaction. PT then fully assited by x2 RN w/ changing into personal clothes. Life was successfully used to transfer PT from cart to personal wheelchair. PT then then assisted by x2 RN w/ repositioning in wheelchair. PT was then dismissed from endo via personal wheelchair to PT entrence w/ , who is driving private car.
--- NOTE | 2021-10-09 11:56 | NUR ---
1135 - IV discontinued. Catheter tip intact and pressure bandage applied. NO redness or swelling noted. Call peña remains within reach
== END 2021-10-09 11:57 | disposition home or self-care (01) ==
LOC: SDCO 08:36
DX: K29.30 Chronic superficial gastritis without bleeding (principal); K21.9 Gastro-esophageal reflux disease without esophagitis; K31.89 Other diseases of stomach and duodenum; I10 Essential (primary) hypertension; E11.9 Type 2 diabetes mellitus without complications; K86.2 Cyst of pancreas; F02.80 Dementia in other diseases classified elsewhere, unspecified severity, without behavioral disturbance, psychotic disturbance, mood disturbance, and anxiety; G31.83 Neurocognitive disorder with Lewy bodies; Z99.3 Dependence on wheelchair; Z87.891 Personal history of nicotine dependence; Z79.01 Long term (current) use of anticoagulants; Z79.52 Long term (current) use of systemic steroids; Z98.84 Bariatric surgery status
CPT/HCPCS: J2704; J7030

== ENCOUNTER 2021-10-19 16:35 | Emergency (ER) | payer MEDICARE, OTHER ==
[~2021-10-19 16:35] MED LIST changes: +NAMENDA5 MG PO
[2021-10-19 17:05] VITALS: TEMP 98.4
[2021-10-19 18:18] LABS: BASO % 0.3 % (0.0-2.0); EOS # 0.1 K/mm3 (0.0-0.7); EOS % 1.3 % (0.0-4.0); GRAN # 4.7 K/mm3 (1.4-6.5); GRAN % 74.6 % (42.2-75.2); HEMATOCRIT 39.6 % (42.0-52.0); HEMOGLOBIN 13.1 g/dl (13.5-18.0); LYMPH # 0.8 K/mm3 (1.2-3.4); LYMPH % 12.5 % (20.0-51.0); MEAN CELL VOLUME 87 fl (80.0-100.0); MEAN CORPUSCULAR HEMOGLOBIN 29 pg (27-31); MEAN CORPUSCULAR HGB CONC 33 g/dl (33.0-37.0); MEAN PLATELET VOLUME 10.1 fl (7.4-10.4); MONO # 0.7 K/mm3 (0.1-0.6); MONO % 10.8 % (1.7-9.3); PLATELET COUNT 294 K/mm3 (130-400); RED BLOOD COUNT 4.55 M/mm3 (4.20-5.60); REDCELL DISTRIBUTION WIDTH-CV 17.7 % (11.5-14.5)
[2021-10-19 18:35] LABS: CALCIUM 8.7 mg/dL (8.4-10.2)
[2021-10-19 18:36] LABS: ALBUMIN 3.4 gm/dL (3.4-4.8); BILIRUBIN,TOTAL 0.3 mg/dL (0.2-1.2); C-REACTIVE PROTEIN 0.25 mg/dL (0.00-0.50); CREATININE, serum 1.32 mg/dL (0.72-1.25); POTASSIUM 3.5 mmol/L (3.5-4.5); TOTAL PROTEIN 6.4 gm/dL (6.2-8.1)
[2021-10-19 19:01] LABS: COLLECTION METHOD CATHETER
[2021-10-19 19:07] LABS: TROPONIN-I 0.012 ng/mL (0.00-0.033)
[2021-10-19 19:28] LABS: PH 5.5 (5.0-8.5); URINE APPEARANCE Clear (CLEAR/HAZY); URINE COLOR Yellow (YELLOW); URINE GLUCOSE Negative (NEGATIVE); URINE KETONE TRACE (NEGATIVE); URINE NITRATE Negative (NEGATIVE); URINE PROTEIN(semi-quant) Negative (NEGATIVE); URINE UROBILINOGEN 0.2 E.U/dL (0.2-1.0)
[2021-10-19 19:29] LABS: URINE BLOOD 2+ (NEGATIVE)
[2021-10-19 20:03] LABS: MUCOUS Present (NOT PRESENT); SQUAMOUS EPITHELIAL None Seen /hpf (0-10); URINE BACTERIA None Seen /hpf (NONE SEEN); URINE RBC >50 /hpf (0-2)
[2021-10-19 20:50] VITALS: BP 127/80; PULSE 71
== END 2021-10-19 21:03 | disposition home or self-care (01) ==
LOC: COL.ER 16:35
PROVIDERS: Nurse Practitioner
DX: R53.1 Weakness (principal); R41.82 Altered mental status, unspecified; G20 Parkinson's disease; F02.80 Dementia in other diseases classified elsewhere, unspecified severity, without behavioral disturbance, psychotic disturbance, mood disturbance, and anxiety; Z20.822 Contact with and (suspected) exposure to COVID-19; Z79.899 Other long term (current) drug therapy
CPT/HCPCS: J2060; J7120

== ENCOUNTER → 2021-10-30 | Outpatient (CLI) | payer MEDICARE, OTHER | LOC: COL.RAD 07:29 | DX: K21.9 Gastro-esophageal reflux disease without esophagitis (principal); R11.10 Vomiting, unspecified | CPT/HCPCS: A9541 ==

== ENCOUNTER → 2021-12-11 | Outpatient (CLI) | payer MEDICARE, OTHER | LOC: COL.RAD 15:29 | DX: I31.39 Other pericardial effusion (noninflammatory) (principal); I95.9 Hypotension, unspecified ==

== ENCOUNTER → 2021-12-14 | Outpatient (CLI) | payer MEDICARE, OTHER | LOC: COL.RAD 12:16 | DX: R06.02 Shortness of breath (principal); R07.89 Other chest pain ==